=== PATIENT | male | born 1990 | race Caucasian/White ===

== ENCOUNTER 2018-11-24 09:33 | Emergency (ER) | payer SELFPAY ==
[~2018-11-24] VITALS: Ht 167.6 cm; Wt 81.4 kg
[2018-11-24 09:35] VITALS: Ht 167.6 cm; Wt 81.4 kg
[2018-11-24] MEDS ORDERED: DIFLUCAN50 MG PO (09:37)
[2018-11-24] MEDS ORDERED: COLESTID1 GM PO (09:37)
[2018-11-24] MEDS ORDERED: FLAGYL250 MG (09:37)
[2018-11-24] MEDS ORDERED: ZOFRAN4 MG PO (09:38)
[2018-11-24] MEDS ORDERED: VOLTAREN75 MG PO (10:20)
[2018-11-24] MEDS ORDERED: AMOXICILLIN500 M1 PO (10:20)
[2018-11-24 10:50] VITALS: BP 132/80
== END 2018-11-24 11:08 | disposition home or self-care (01) ==
LOC: D.ER 09:33
DX: K04.7 Periapical abscess without sinus (principal); K08.89 Other specified disorders of teeth and supporting structures